=== PATIENT | male | born 1950 | race Caucasian/White ===

== ENCOUNTER → 2019-01-24 | Outpatient (CLI) | payer MEDICARE ==
--- NOTE | 2019-01-24 15:17 | Diagnostic Imaging Report ---
PROCEDURE: CT head without contrast. TECHNIQUE: Multiple contiguous axial images were obtained through the brain without the use of intravenous contrast. Auto Exposure Controls were utilized during the CT exam to meet ALARA standards for radiation dose reduction. INDICATION: Head injury. COMPARISON: None. FINDINGS: No intracranial hemorrhage, mass effect, hydrocephalus or extra-axial fluid collections. No CT evidence of a territorial infarction. The visualized osseous structures are intact. Partially visualized soft tissue thickening of the right upper eyelid. Visualized paranasal sinuses and mastoids are clear. IMPRESSION: 1. Soft tissue swelling of the right upper eyelid is partially visualized. No underlying fractures within the [id number]. 2. No acute intracranial CT findings. Dictated by: Dictated on workstation # [id number]
--- NOTE | 2019-01-24 15:28 | Diagnostic Imaging Report ---
INDICATION: Kicked by a horse. FINDINGS: There is an old healed deformity to the proximal third of the femoral shaft. The femoral neck and head are nonacute. The acetabulum and right pelvic ring are intact. An acute injury is not apparent. IMPRESSION: Old healed deformity to the femoral shaft. An acute fracture is not identified. Dictated by: Dictated on workstation # [id number]
== END ==
LOC: RAD FS 14:39
PROVIDERS: ATTEND Nurse Practitioner Family
DX: S06.0X0A Concussion without loss of consciousness, initial encounter (principal); M25.551 Pain in right hip; W55.12XA Struck by horse, initial encounter
CPT/HCPCS: 70450; 73502

== ENCOUNTER → 2019-05-04 | Outpatient (CLI) | payer MEDICARE ==
--- NOTE | 2019-05-04 12:29 | Diagnostic Imaging Report ---
EXAMINATION: Chest 2 view HISTORY: ACUTE BRONCHITIS, COUGH COMPARISON: None available. FINDINGS: The lung volumes are normal. Mild bronchial wall thickening is noted in the perihilar regions. No focal consolidation is seen. No large pleural effusion or pneumothorax is seen. The cardiomediastinal silhouette is normal in size and contour. No acute osseous abnormality is seen. IMPRESSION: 1. Mild bronchial wall thickening, which can be seen with bronchitis/bronchiolitis. No focal consolidations. Dictated by: Dictated on workstation # [id number]
== END ==
LOC: RAD FS 11:56
PROVIDERS: ATTEND Emergency Medicine
DX: J20.9 Acute bronchitis, unspecified (principal)
CPT/HCPCS: 71046

== ENCOUNTER → 2019-07-07 | Outpatient (CLI) | payer MEDICARE | LOC: LAB FS 10:43 | PROVIDERS: ATTEND Urology | DX: C61 Malignant neoplasm of prostate (principal) | CPT/HCPCS: 36415; 84153 ==

== ENCOUNTER → 2019-09-07 | Outpatient (CLI) | payer MEDICARE | LOC: LAB FS 13:01 | PROVIDERS: ATTEND Urology | DX: C61 Malignant neoplasm of prostate (principal) | CPT/HCPCS: 36415; 84153 ==

== ENCOUNTER → 2019-12-07 | Outpatient (CLI) | payer MEDICARE | LOC: LAB FS 11:31 | PROVIDERS: ATTEND Urology | DX: C61 Malignant neoplasm of prostate (principal) | CPT/HCPCS: 36415; 84153 ==

== ENCOUNTER 2020-01-02 14:07 | Outpatient (RCR) | payer MEDICARE | END 2020-04-01 | disposition home or self-care (01) | LOC: ONC 14:07 | PROVIDERS: ATTEND Radiology Radiation Oncology | DX: C61 Malignant neoplasm of prostate (principal) | CPT/HCPCS: 99204 ==

== ENCOUNTER → 2020-04-12 | Outpatient (CLI) | payer MEDICARE | LOC: LAB FS 09:09 | PROVIDERS: ATTEND Urology | DX: C61 Malignant neoplasm of prostate (principal) | CPT/HCPCS: 36415; 84153 ==

== ENCOUNTER → 2020-08-08 | Outpatient (CLI) | payer MEDICARE | LOC: LAB FS 11:23 | PROVIDERS: ATTEND Urology | DX: C61 Malignant neoplasm of prostate (principal) | CPT/HCPCS: 36415; 84153; 84154 ==

== ENCOUNTER → 2020-11-12 | Outpatient (CLI) | payer MEDICARE | LOC: LAB FS 09:50 | PROVIDERS: ATTEND Urology | DX: C61 Malignant neoplasm of prostate (principal) | CPT/HCPCS: 36415; 84153 ==

== ENCOUNTER 2020-11-21 11:18 | Emergency (ER) | payer MEDICARE ==
[~2020-11-21] VITALS: Ht 180.3 cm; Wt 93.5 kg
--- OUTSIDE RECORDS SUMMARY | 2020-11-21 11:23 | XMS REPORT | Clinical Summary ---
Author Author Shireen, Joaquin Tan Organization [facility] Address Unknown Phone Unavailable Allergies, Adverse Reactions, Alerts Allergy Name Reaction Description Start Date Severity Status Pr ovider No Known Allergies Chen Duenas Conditions or Problems Problem Name Problem Code Onset Date Status Entry Date Provider Comment Standard Description Annotate BMI 28-28.9 Refinement Britney Chance MD Body Mass Index 28.0-28.9, adult BMI 27-27.9 Refinement Britney Chance MD Body Mass Index 28.0-28.9, adult BMI 26-26.9 Active Britney Chance MD Body Mass Index 28.0-28.9, adult Overweight (BMI 25-29.9) Active Britney hightower MD Overweight Abnormal prostate on physical examination 602.9 Activ e Britney Chance MD Unspecified disorder of prostate Elevated prostate specific antigen [PSA] 790.93 Active Britney Chance MD Elevated prostate specific antigen [PSA] Adenocarcinoma, prostate, Carlos Alberto Grade 8 185 Resol armond Britney Chance MD Malignant neoplasm of prostate Adenocarcinoma, prostate, [place] Grade 9 185 Activ e Britney Chance MD Malignant neoplasm of prostate Adenocarcinoma, prostate, [place] Grade 8 ICD-185 Inactive Britney Chance MD Medication List Medication Instructions Start Date Stop Date Generic Name NDC Status Provider Patient Instruction VENLAFAXINE HCL 37.5 MG ORAL TABLET 1 tab by mouth daily VENLAFAXINE HCL 14319409303 Active Kacie Elder Active VITAMIN D2 50 MCG (1999 UT) ORAL TABLET 50,000 units daily ERGOCALCIFEROL 62969537754 No Longer Active Britney Chance MD Ac tive AMBIEN 10 MG ORAL TABLET 1 tab by mouth at bedtime as needed for sleep ZOLPIDEM TARTRATE 98962348431 No Longer Active Kacie Garay Active ASACOL HD 800 MG ORAL TABLET DELAYED RELEASE 3 tabs by mouth daily MESALAMINE 27849173280 No Longer Active Kacie Garay Active FLOMAX 0.4 MG ORAL CAPSULE 1 capsule by mouth every ev ening for prostate symptoms TAMSULOSIN HCL 10500559873 No Longer Active Kacie serrano Active FINASTERIDE 5 MG ORAL TABLET 1 tab by mouth daily FINASTERIDE 37180132460 No Longer Active Kacie Garay Active ASACOL HD 800 MG ORAL TABLET DELAYED RELEASE 3 tabs by mouth in morning and at night MESALAMINE 44790599724 Active Britney Chance MD Active FINASTERIDE 5 MG ORAL TABLET 1 tab by mouth daily FINASTERIDE 67757150418 Active Britney Chance MD Active FLOMAX 0.4 MG ORAL CAPSULE 1 capsule by mouth every ev ening for prostate symptoms TAMSULOSIN HCL 77771724309 Active Britney Chance MD Active BREO ELLIPTA 100-25 MCG/INH INHALATION AEROSOL POWDER BREATH ACTIVATED 1 puff by mouth q day for COPD FLUTICASONE FUROATE-VILANTEROL 55308 009836 Active Kacie Garay Active SYMBICORT 160-4.5 MCG/ACT INHALATION AEROSOL 2 puff BID BUDESONIDE- FORMOTEROL FUMARATE 64741170409 Active Kacie Garay Active TRAMADOL HCL 50 MG ORAL TABLET 1 po tid with ES Tylenol TRAMADOL HCL 25379731399 Active Kacie Elder Active AMBIEN 10 MG ORAL TABLET 1 tab by mouth at bedtime as needed for sl eep ZOLPIDEM TARTRATE 76982872562 Active Kacie Elder Active VITAMIN D2 50 MCG (1999 UT) ORAL TABLET 50,000 unit by mouth daily ERGOCALCIFEROL 45790077926 Active Kacie Elder Active ALBUTEROL SULFATE (2.5 MG/3ML) 0.083% INHALATION NEBUL IZATION SOLUTION 1 vial neb q 4hrs PRN Wheezing ALBUTEROL SULFATE 80465248443 Active [place] Active FINASTERIDE 5 MG ORAL TABLET 1 tab by mouth daily 2020 FINASTERIDE 5 MG ORAL TABLET 659799 FINASTERIDE Inactive FLOMAX 0.4 MG ORAL CAPSULE 1 capsule by mouth every ev ening for prostate symptoms FLOMAX 0.4 MG ORAL CAPSULE 363271 TAMSULOSI N HCL Inactive ASACOL HD 800 MG ORAL TABLET DELAYED RELEASE 3 tabs by mouth daily ASACOL HD 800 MG ORAL TABLET DELAYED RELEASE 378891 MESALAMINE Inactive AMBIEN 10 MG ORAL TABLET 1 tab by mouth at bedtime as needed for sleep AMBIEN 10 MG ORAL TABLET 275116 ZOLPIDEM TARTRATE Inact raymundo VITAMIN D2 50 MCG (1999) ORAL TABLET 50,000 units daily VITAMIN D2 50 MCG (1999) ORAL TABLET ERGOCALCIFEROL Inactive Advance Directives Directive Description Start Date PERMISSION TO SHARE PERMISSION TO SHARE Vital Signs Date Name Value Unit Range Description blood pressure, diastolic 76 mm[Hg] BP andrea blood pressure, systolic 118 mm[Hg] BP sys height E&M 71 [in_us] Bdy height pulse rate 72 /min Heart rate temperature E&M 98.4 [degF] Body temp erature weight E&M 190 [lb_av] Weight Measure d blood pressure, diastolic, repeated by physician 72 BP andrea blood pressure, diastolic 72 mm[Hg] BP andrea blood pressure, systolic, repeated by physician 113 BP sys blood pressure, systolic 113 mm[Hg] BP sys height E&M 71 [in_us] Bdy height pulse rate 70 /min Heart rate temperature E&M 98.4 [degF] Body temp erature weight E&M 192 [lb_av] Weight Measure d blood pressure, diastolic, repeated by physician 75 BP andrea blood pressure, diastolic 75 mm[Hg] BP andrea blood pressure, systolic, repeated by physician 116 BP sys blood pressure, systolic 116 mm[Hg] BP sys height E&M 71 [in_us] Bdy height pulse rate 67 /min Heart rate temperature E&M 98.4 [degF] Body temp erature weight E&M 193 [lb_av] Weight Measure d Encounters Code Encounter Date Provider Facility CPT-23139 Level 3 Est. Patient 15:35:22 CDT Britney hightower MD [facility] CPT-56798 Level 3 Est. Patient 11:04:55 DIRECTOR OF WOMEN'S SERVICES Britney hightower MD [facility]-18311 Level 4 Est. Patient 11:26:57 CDT Britney hightower MD [facility]-58938 Level 3 Est. Patient 11:05:02 CDT Britney hightower MD [facility]-42415 Level 3 Est. Patient 14:22:43 CDT Britney hightower MD [facility]-85815 Level 4 Est. Patient 14:18:08 CDT Britney hightower MD [facility]-94664 Level 4 Est. Patient 14:38:34 CDT Britney hightower MD [facility] CPT-31786 Level 3 Est. Patient 15:39:13 CDT Britney hightower MD [facility] CPT-63537 Level 4 New Patient 20:47:31 CDT Britney ayala MD [facility] Procedures Code Procedure Name Date Entry Date Standard Desc ription CPT-10882 Admin hormonal anti neoplastic 15:35:22 CDT CPT-[id number] Lupron 22.5 mg (3 month) 15:35:22 CDT 08/16 CPT-87987 Admin hormonal anti neoplastic 15:10:04 DIRECTOR OF WOMEN'S SERVICES CPT-X9326X4 Lupron 22.5 mg (3 month) 15:10:04 DIRECTOR OF WOMEN'S SERVICES 04/29 CPT-82839 Bladder Scan 11:04:55 DIRECTOR OF WOMEN'S SERVICES CPT-19251 Admin hormonal anti neoplastic 11:28:28 CDT CPT-J9217 Lupron 30mg 11:28:28 CDT CPT-92682 Admin hormonal anti neoplastic 11:05:02 CDT CPT-K2637E5 Lupron 22.5 mg (3 month) 11:05:02 CDT 09/14 CPT-58194 Dil ureth strict sound/dilator M int 14:22:44 CDT CPT-92044 Cystoscopy 14:22:44 CDT CPT-95904 Postop F/U Visit 12:20:46 CDT CPT-85355 Admin hormonal anti neoplastic 14:40:05 CDT CPT-J9155 Firmagon 240 mg 14:40:05 CDT CPT-84786 Needle Biopsy - Prostate 15:39:13 CDT 06/11 CPT-00722 Ultrasound - Prostatic for Bx 15:39:13 CDT
--- NOTE | 2020-11-21 11:33 | ED Back Pain ---
General Chief Complaint: Back Problems Stated Complaint: RT FLANK PAIN History of Present Illness Date Seen by Provider: Nov 21, 2020 Time Seen by Provider: 11:32 Initial Comments 70-year-old male presents with onset of right flank and back pain at 3 AM this morning. Pain has migrated somewhat from his back and flank to his right lower quadrant. No associated blood in his urine or pain with urination, however does have a history of kidney stones. Denies fever chills or abdominal pain. Denies constipation or diarrhea. Allergies and Home Medications Allergies Coded Allergies: No Known Drug Allergies (Unverified , 11/21/20) Patient Home Medication List Home Medication List Reviewed: Yes Hydrocodone/Acetaminophen (Hydrocodone-Acetamin 5-325 mg) 1 Each Tablet, 1 EACH PO Q4H Prescribed by: ABBY SUE on 11/21/20 1317 Ibuprofen (Ibuprofen) 800 Mg Tablet, 800 MG PO Q8H PRN for PAIN Prescribed by: ABBY SUE on 11/21/20 1316 Tamsulosin HCl (Flomax) 0.4 Mg Cap, 0.4 MG PO DAILY Prescribed by: ABBY SUE on 11/21/20 1316 Review of Systems Constitutional: No fever, No malaise, No weakness Respiratory: no symptoms reported Cardiovascular: No chest pain, No edema Gastrointestinal: No abdominal pain; nausea; No vomiting Genitourinary: No dysuria, No frequency, No hematuria Musculoskeletal: back pain Skin: No change in color, No rash Past Rymtwci-Awppim-Vyjmxi Hx Patient Social History Tobacco Use?: No Physical Exam Vital Signs Vital Signs - First Documented 11/21/20 11/21/20 11:20 13:27 Temp 36.1 Pulse 61 Resp 14 B/P (MAP) 151/80 (103) Pulse Ox 97 O2 Delivery Room Air Capillary Refill : Height, Weight, BMI Height: '" Weight: lbs. oz. kg; BMI Method: General Appearance: No Apparent Distress, WD/WN Cardiovascular: Regular Rate, Rhythm, No Edema Respiratory: Chest Non Tender, Lungs Clear Gastrointestinal: Normal Bowel Sounds, No Organomegaly, Non Tender, Soft Back: No CVA Tenderness, No Vertebral Tenderness Neurologic/Psychiatric: Alert, Oriented x3, No Motor/Sensory Deficits, Normal Mood/Affect Skin: Normal Color, Warm/Dry Progress/Results/Core Measures Results/Orders Lab Results Laboratory Tests Test 11/21/20 11:20 Range/Units Urine Color YELLOW Urine Clarity CLOUDY Urine pH 5.0 5-9 Urine Specific [place] >=1.030 1.016-1.022 Urine Protein NEGATIVE NEGATIVE Urine Glucose (UA) NEGATIVE NEGATIVE Urine Ketones NEGATIVE NEGATIVE Urine Nitrite NEGATIVE NEGATIVE Urine Bilirubin NEGATIVE NEGATIVE Urine Urobilinogen 0.2 < = 1.0 MG/DL Urine Leukocyte Esterase NEGATIVE NEGATIVE Urine RBC (Auto) 3+ H NEGATIVE Urine RBC >100 H /HPF Urine WBC RARE /HPF Urine Squamous Epithelial Cells NONE /HPF Urine Crystals NONE /LPF Urine Bacteria NEGATIVE /HPF Urine Casts NONE /LPF Urine Mucus NEGATIVE /LPF Urine Culture Indicated NO My Orders Orders - ABBY SUE DO Urinalysis (11/21/20 11:28) Ns Iv 1000 Ml (Sodium Chloride 0.9%) (11/21/20 11:45) Ketorolac Injection (Toradol Injection) (11/21/20 11:45) Ondansetron Injection (Zofran Injectio (11/21/20 11:45) Ct Abdomen/Pelvis Wo (11/21/20 12:29) Medications Given in ED Current Medications Medications Dose Ordered Sig/Waldo Route Start Time Stop Time Status Last Admin Dose Admin Ketorolac Tromethamine 30 mg ONCE ONCE IVP 11/21/20 11:45 11/21/20 11:46 DC 11/21/20 11:41 30 MG Ondansetron HCl 4 mg ONCE ONCE IVP 11/21/20 11:45 11/21/20 11:46 DC 11/21/20 11:42 4 MG Vital Signs/I&O 11/21/20 11/21/20 11:20 13:27 Temp 36.1 36.1 Pulse 61 57 Resp 14 B/P (MAP) 151/80 (103) 136/75 Pulse Ox 97 97 O2 Delivery Room Air Room Air Progress Progress Note : Time: 12:30 Progress Note some relief of pain....from 8 to 6/10 intensity. NO change of location of pain. Departure Impression Primary Impression: Ureterolithiasis Disposition: 01 HOME, SELF-CARE Condition: Improved Departure-Patient Inst. Decision time for Depature: 13:11 Referrals: DAVID SPARROW DO (PCP/Family) Primary Care Physician LISA GALLEGO MD Patient Instructions: Kidney Stone, Adult ED, How to Strain Your Urine, Kidney Stone Diet Add. Discharge Instructions: Call your Urologist today to schedule a follow up appointment if your pain is not resolving All discharge instructions reviewed with patient and/or family. Voiced understanding. Scripts Ibuprofen (Ibuprofen) 800 Mg Tablet 800 MG PO Q8H PRN for PAIN, #30 TAB 0 Refills Prov: ABBY SUE DO 11/21/20 Hydrocodone/Acetaminophen (Hydrocodone-Acetamin 5-325 mg) 1 Each Tablet 1 EACH PO Q4H for Abdominal Pain, #12 TAB Prov: ABBY SUE DO 11/21/20 Tamsulosin HCl (Flomax) 0.4 Mg Cap 0.4 MG PO DAILY, #5 CAP Prov: ABBY SUE DO 11/21/20 ABBY SUE DO Nov 21, 2020 11:32
[2020-11-21 11:44] LABS: BILIRUBIN,URINE NEGATIVE (NEGATIVE); CLARITY,URINE CLOUDY; COLOR,URINE YELLOW; GLUCOSE, URINE (UA) NEGATIVE (NEGATIVE); KETONES,URINE NEGATIVE (NEGATIVE); LEUKOCYTE ESTERASE ,URINE NEGATIVE (NEGATIVE); NITRITE,URINE NEGATIVE (NEGATIVE); PROTEIN,URINE NEGATIVE (NEGATIVE)
[2020-11-21 11:45] LABS: BACTERIA,URINE NEGATIVE /HPF; RBC,URINE >100 /HPF; WBC,URINE RARE /HPF
[2020-11-21] MEDS ORDERED: KETOROLAC 30 MG/ML VIAL IVP ONE (11:45)
[2020-11-21] MEDS ORDERED: NS IV 1000 ML 1,000 ML IV SCH (11:45)
[2020-11-21] MEDS ORDERED: ONDANSETRON 4 MG/2 ML (SDV) Z0FRAN IVP ONE (11:45)
--- NOTE | 2020-11-21 13:02 | Diagnostic Imaging Report ---
PROCEDURE: CT abdomen and pelvis without contrast. TECHNIQUE: Multiple contiguous axial images were obtained through the abdomen and pelvis without the use of intravenous contrast. Auto Exposure Controls were utilized during the CT exam to meet ALARA standards for radiation dose reduction. INDICATION: Right flank pain. Patient does have a history of kidney stones. No prior studies are available for comparison. FINDINGS: There is a 4 mm nodule in the right middle lobe laterally. Otherwise the lung bases are clear. Liver is unremarkable. Gallbladder is surgically absent. There is no biliary ductal dilatation. Pancreas and spleen are unremarkable. No adrenal mass is detected. There are bilateral renal calculi, largest is on the left in the lower pole measuring 9 mm. There is also a 5 mm calculus at the junction of the proximal and mid right ureter producing moderate hydroureteronephrosis. No other ureteral calculi are detected. Aorta is nonaneurysmal. Bowel loops are normal caliber. There is generalized diverticulosis throughout the colon most significant in the sigmoid colon but no evidence of acute diverticulitis. There is no free fluid or fluid collection. Bladder is unremarkable. There are fat-containing inguinal hernias bilaterally. IMPRESSION: 1. Bilateral nonobstructing nephrolithiasis. In addition, there is a 5 mm calculus at the junction of the proximal and mid right ureter producing moderate hydroureteronephrosis. 2. Uncomplicated diverticulosis. Dictated by: Dictated on workstation # [id number]
[2020-11-21] MEDS ORDERED: ACHD5005 PO (13:16)
[2020-11-21] MEDS ORDERED: IBUP-1780 PO (13:16)
[2020-11-21] MEDS ORDERED: TMSL.4C PO (13:16)
[2020-11-21 13:27] VITALS: BP 136/75
== END 2020-11-21 13:27 | disposition home or self-care (01) ==
LOC: EDUNIT# 11:18 → ER FS 11:20
DX: N13.2 Hydronephrosis with renal and ureteral calculous obstruction (principal)
CPT/HCPCS: 74176; 81000

== ENCOUNTER → 2021-02-07 | Outpatient (CLI) | payer MEDICARE ==
[~2021-02-07] MED LIST: ACHD5005 PO; IBUP-1780 PO; TMSL.4C PO
== END ==
LOC: LAB FS 09:06
PROVIDERS: ATTEND Urology
DX: C61 Malignant neoplasm of prostate (principal)
CPT/HCPCS: 36415; 84153

== ENCOUNTER → 2021-02-18 | Outpatient (CLI) | payer MEDICARE ==
--- NOTE | 2021-02-18 13:18 | Diagnostic Imaging Report ---
INDICATION: Right-sided abdominal pain. TIME OF EXAM: 10:19 AM Single view the abdomen shows surgical clips in gallbladder fossa. The bowel gas pattern is nonobstructed. No definite pathologic calcifications are seen. IMPRESSION: No acute abnormalities detected. Dictated by: Dictated on workstation # [id number]
== END ==
LOC: RAD FS 10:04
PROVIDERS: ATTEND Nurse Practitioner Family
DX: N20.9 Urinary calculus, unspecified (principal)
CPT/HCPCS: 74018

== ENCOUNTER → 2021-05-07 | Outpatient (CLI) | payer MEDICARE | LOC: LAB FS 15:19 | PROVIDERS: ATTEND Urology | DX: C61 Malignant neoplasm of prostate (principal) | CPT/HCPCS: 36415; 84153; 84270; 84403 ==

== ENCOUNTER → 2021-08-07 | Outpatient (CLI) | payer MEDICARE | LOC: LAB FS 13:11 | PROVIDERS: ATTEND Urology | DX: C61 Malignant neoplasm of prostate (principal) | CPT/HCPCS: 36415; 84153; 84403 ==

== ENCOUNTER → 2021-11-07 | Outpatient (CLI) | payer MEDICARE | LOC: LAB FS 09:06 | PROVIDERS: ATTEND Urology | DX: C61 Malignant neoplasm of prostate (principal) | CPT/HCPCS: 36415; 84153 ==

== ENCOUNTER 2021-11-21 17:26 | Emergency (ER) | payer MEDICARE ==
[~2021-11-21] VITALS: Ht 180.3 cm; Wt 91.0 kg
[2021-11-21 17:35] VITALS: BP 120/76
--- NOTE | 2021-11-21 17:36 | ED GI ---
General Chief Complaint: Abdominal/GI Problems Stated Complaint: BLOOD IN STOOL History of Present Illness Date Seen by Provider: Nov 21, 2021 Time Seen by Provider: 17:31 Initial Comments 71-year-old male presents has had 9 stools that have had blood in them. Patient reports is bright red blood. He has had a little bit of stool with it. Patient reports he had a normal colonoscopy with exception of some hemorrhoids in August. He does have a history of ulcerative colitis. He is not having a belly pain. He has some nausea but no vomiting. Feels like he is little short of breath now with some exertion. Patient denies any fever, chills or urinary symptoms Allergies and Home Medications Allergies Coded Allergies: No Known Drug Allergies (Unverified , 11/21/20) Patient Home Medication List Home Medication List Reviewed: Yes Hydrocodone/Acetaminophen (Hydrocodone-Acetamin 5-325 mg) 1 Each Tablet, 1 EACH PO Q4H Prescribed by: ABBY SUE on 11/21/20 1317 Ibuprofen (Ibuprofen) 800 Mg Tablet, 800 MG PO Q8H PRN for PAIN Prescribed by: ABBY SUE on 11/21/20 131 Ondansetron (Ondansetron Odt) 4 Mg Tab.rapdis, 4 MG PO Q6H PRN for NAUSEA/VOMITING Prescribed by: ADRIANA GUILLERMO on 11/21/211929 Prednisone (Prednisone) 20 Mg Tab, 40 MG PO DAILY Prescribed by: ADRIANA GUILLERMO on 11/21/211929 Tamsulosin HCl (Flomax) 0.4 Mg Cap, 0.4 MG PO DAILY Prescribed by: ABBY SUE on 11/21/20 1316 Review of Systems Review of Systems Constitutional: No chills, No fever Respiratory: Denies Cough, Denies Orthopnea Cardiovascular: Denies Chest Pain, Denies Palpitations Gastrointestinal: Denies Abdominal Pain; Nausea, Rectal Bleeding; Denies Vom iting Genitourinary: No Symptoms Reported Musculoskeletal: no symptoms reported Skin: no symptoms reported Psychiatric/Neurological: No Symptoms Reported Endocrine: No Symptoms Reported Past Dayykrr-Spqmhm-Hfkobk Hx Immunizations Up To Date First/Initial COVID19 Vaccinat: 2020 Second COVID19 Vaccination Nicholas: May 2020 Physical Exam Vital Signs Vital Signs - First Documented 11/21/21 17:35 Temp 36.4 Pulse 102 Resp 17 B/P (MAP) 120/76 (91) Pulse Ox 93 O2 Delivery Room Air Capillary Refill : Height/Weight/BMI Height: '" Weight: lbs. oz. kg; 28.00 BMI Method: General Appearance: no apparent distress HEENT: PERRL/EOMI Neck: full range of motion, supple Respiratory: lungs clear, normal breath sounds Cardiovascular: normal peripheral pulses, regular rate, rhythm Gastrointestinal: non tender, soft Extremities: normal range of motion, non-tender Neurologic/Psychiatric: no motor/sensory deficits, alert, normal mood/affect, oriented x 3 Skin: normal color, warm/dry Progress/Results/Core Measures Results/Orders Lab Results Laboratory Tests Test 11/21/21 17:36 11/21/21 18:04 Range/Units White Blood Count 8.2 4.3-11.0 10^3/uL Red Blood Count 4.03 L 4.30-5.52 10^6/uL Hemoglobin 12.6 L 13.3-17.7 g/dL Hematocrit 36 L 40-54 % Mean Corpuscular Volume 89 80-99 fL Mean Corpuscular Hemoglobin 31 25-34 pg Mean Corpuscular Hemoglobin Concent 35 32-36 g/dL Red Cell Distribution Width 13.3 10.0-14.5 % Platelet Count 281 130-400 10^3/uL Mean Platelet Volume 9.0 9.0-12.2 fL Immature Granulocyte % (Auto) 3 % Neutrophils (%) (Auto) 54 42-75 % Lymphocytes (%) (Auto) 26 12-44 % Monocytes (%) (Auto) 11 0-12 % Eosinophils (%) (Auto) 5 0-10 % Basophils (%) (Auto) 2 0-10 % Neutrophils # (Auto) 4.4 1.8-7.8 10^3/uL Lymphocytes # (Auto) 2.1 1.0-4.0 10^3/uL Monocytes # (Auto) 0.9 0.0-1.0 10^3/uL Eosinophils # (Auto) 0.4 H 0.0-0.3 10^3/uL Basophils # (Auto) 0.1 0.0-0.1 10^3/uL Immature Granulocyte # (Auto) 0.2 H 0.0-0.1 10^3/uL Erythrocyte Sedimentation Rate 45 H 0-30 MM/HR Sodium Level 138 135-145 MMOL/L Potassium Level 4.1 3.6-5.0 MMOL/L Chloride Level 106 98-107 MMOL/L Carbon Dioxide Level 18 L 21-32 MMOL/L Anion Gap 14 5-14 MMOL/L Blood Urea Nitrogen 26 H 7-18 MG/DL Creatinine 0.87 0.60-1.30 MG/DL Estimat Glomerular Filtration Rate 92 BUN/Creatinine Ratio 30 Glucose Level 185 H 70-105 MG/DL Calcium Level 8.8 8.5-10.1 MG/DL Corrected Calcium 8.7 8.5-10.1 MG/DL Magnesium Level 1.9 1.6-2.4 MG/DL Total Bilirubin 0.4 0.1-1.0 MG/DL Aspartate Amino Transf (AST/SGOT) 31 5-34 U/L Alanine Aminotransferase (ALT/SGPT) 45 0-55 U/L Alkaline Phosphatase 84 40-136 U/L C-Reactive Protein < 0.30 <0.50 MG/DL Total Protein 6.9 6.4-8.2 GM/DL Albumin 4.1 3.2-4.5 GM/DL Urine Color YELLOW Urine Clarity CLEAR Urine pH 5.0 5-9 Urine Specific [place] >=1.030 1.016-1.022 Urine Protein 1+ H NEGATIVE Urine Glucose (UA) TRACE H NEGATIVE Urine Ketones NEGATIVE NEGATIVE Urine Nitrite NEGATIVE NEGATIVE Urine Bilirubin 1+ H NEGATIVE Urine Urobilinogen 0.2 < = 1.0 MG/DL Urine Leukocyte Esterase NEGATIVE NEGATIVE Urine RBC (Auto) NEGATIVE NEGATIVE Urine RBC NONE /HPF Urine WBC 5-10 H /HPF Urine Squamous Epithelial Cells NONE /HPF Urine Crystals NONE /LPF Urine Bacteria MODERATE H /HPF Urine Casts PRESENT /LPF Urine Granular Casts 10-25 H /LPF Urine Mucus NEGATIVE /LPF Urine Culture Indicated YES My Orders Orders - GUILLERMO,ADRIANA L DO Cbc With Automated Diff (11/21/21 17:37) Comprehensive Metabolic Panel (11/21/21 17:37) Erythrocyte Sedimentation Rate (11/21/21 17:37) Magnesium (11/21/21 17:37) Ua Culture If Indicated (11/21/21 17:37) Crp Fs (11/21/21 17:37) Lactated Ringers (Lr 1000 Ml Iv Solution (11/21/21 17:37) Ed Iv/Invasive Line Start (11/21/21 17:37) Urine Culture (11/21/21 18:04) Ct Abdomen/Pelvis W (11/21/21 18:20) Iohexol Injection (Omnipaque 350 Mg/Ml 1 (11/21/21 18:30) Received Contrast (Hold Metformin- Contr (11/21/21 18:30) Ns (Ivpb) (Sodium Chloride 0.9% Ivpb Bag (11/21/21 18:30) Methylprednisolone Sod Succ (Solu-Medrol (11/21/21 19:30) Medications Given in ED Current Medications Medications Dose Ordered Sig/Waldo Route Start Time Stop Time Status Last Admin Dose Admin Iohexol 100 ml ONCE ONCE IV 11/21/21 18:30 11/21/21 18:31 DC 11/21/21 18:49 100 ML Methylprednisolone Sodium Succinate 80 mg ONCE ONCE IV 11/21/21 19:30 11/21/21 19:31 DC 11/21/21 19:37 80 MG Sodium Chloride 100 ml ONCE ONCE IV 11/21/21 18:30 11/21/21 18:31 DC 11/21/21 18:49 100 ML Vital Signs/I&O 11/21/21 17:35 Temp 36.4 Pulse 102 Resp 17 B/P (MAP) 120/76 (91) Pulse Ox 93 O2 Delivery Room Air Progress Progress Note : Progress Note Patient with elevated ESR along with CT scan shows colitis. Patient will be given steroid shot here in the ER then prescribed steroid x3 days. Patient should continue his other medication. Recommend he follow-up with his GI specialist next week. Patient stable and discharged Diagnostic Imaging Diagonstic Imaging: CT Plain Films/CT/US/NM/MRI: abdomen Comments Date of Exam:11/21/21 CT ABDOMEN/PELVIS W PROCEDURE: CT abdomen and pelvis with contrast. TECHNIQUE: Multiple contiguous axial images were obtained through the abdomen and pelvis after administration of intravenous contrast. Auto Exposure Controls were utilized during the CT exam to meet ALARA standards for radiation dose reduction. All CT scans use one or more of the following dose optimizing techniques: automated exposure control, MA and/or KvP adjustment based on patient size and exam type or iterative reconstruction. INDICATION: Rectal bleeding, diarrhea. COMPARISON: 11/21/2020 FINDINGS: Mild bronchiectatic changes within the lung bases. No significant basilar pleural effusion. Sub-0.6 cm left lower lobe pulmonary nodules are unchanged from the prior examination. Cholecystectomy. The liver is unremarkable. The spleen is unremarkable. The adrenal glands are unremarkable. The pancreas is unremarkable. Bilateral nonobstructing renal calculi are again identified within the kidneys bilaterally. Additional small hypodensities within bilateral kidneys are present which are too small to completely characterize. Mild vascular calcifications without aneurysmal dilatation of the abdominal aorta. The appendix is unremarkable. The urinary bladder is decompressed, therefore not well evaluated. The prostate gland is not definitely visualized. Mural thickening of the rectum and distal sigmoid colon is noted. Moderate colonic diverticulosis. No bowel obstruction or pneumatosis. No significant adenopathy, free air, or free fluid within the abdomen or pelvis. No acute osseous abnormality. IMPRESSION: Mural thickening of the rectum and distal sigmoid colon is suggestive of underlying colitis. No evidence of bowel obstruction. Moderate colonic diverticulosis. Bilateral nonobstructing renal calculi. Stable sub-0.6 cm left lower lobe pulmonary nodules. If the patient is at high risk for lung cancer, a follow-up CT of the chest would be recommended in one year to ensure stability. Reviewed: Reviewed/Discussed Departure Impression Primary Impression: Colitis Disposition: 01 HOME, SELF-CARE Condition: Improved Departure-Patient Inst. Referrals: DAVID SPARROW DO (PCP/Family) Primary Care Physician Patient Instructions: Colitis (DC), Diet for Ulcerative Colitis, Ulcerative Colitis (DC) Add. Discharge Instructions: Please call your GI specialist on Wednesday to arrange for a follow-up and further outpatient evaluation as needed All discharge instructions reviewed with patient and/or family. Voiced understanding. Scripts Ondansetron (Ondansetron Odt) 4 Mg Tab.rapdis 4 MG PO Q6H PRN for NAUSEA/VOMITING, #20 TAB 0 Refills Prov: GUILLERMO,ADRIANA L DO 11/21/21 Prednisone (Prednisone) 20 Mg Tab 40 MG PO DAILY, #6 TAB 0 Refills Prov: GUILLERMO,ADRIANA L DO 11/21/21 GUILLERMO,ADRIANA L DO Nov 21, 2021 17:36
[2021-11-21] MEDS ORDERED: LACTATED RINGERS 1,000 ML IV STA (17:37)
[2021-11-21 17:44] LABS: BASOPHILS # (AUTO) 0.1 10^3/uL (0.0-0.1); BASOPHILS % (AUTO) 2 % (0-10); EOSINOPHILS # (AUTO) 0.4 10^3/uL (0.0-0.3); EOSINOPHILS % (AUTO) 5 % (0-10); HEMATOCRIT 36 % (40-54); HEMOGLOBIN 12.6 g/dL (13.3-17.7); LYMPHOCYTES # (AUTO) 2.1 10^3/uL (1.0-4.0); LYMPHOCYTES % (AUTO) 26 % (12-44); MEAN CORPUSCULAR HEMOGLOBIN 31 pg (25-34); MEAN CORPUSCULAR HGB CONC 35 g/dL (32-36); MEAN CORPUSCULAR VOLUME 89 fL (80-99); MONOCYTES # (AUTO) 0.9 10^3/uL (0.0-1.0); MONOCYTES % (AUTO) 11 % (0-12); NEUTROPHILS # (AUTO) 4.4 10^3/uL (1.8-7.8); NEUTROPHILS % (AUTO) 54 % (42-75); PLATELET COUNT 281 10^3/uL (130-400); WHITE BLOOD COUNT 8.2 10^3/uL (4.3-11.0)
[2021-11-21 18:08] LABS: CLARITY,URINE CLEAR; COLOR,URINE YELLOW; GLUCOSE, URINE (UA) TRACE (NEGATIVE); KETONES,URINE NEGATIVE (NEGATIVE); LEUKOCYTE ESTERASE ,URINE NEGATIVE (NEGATIVE); NITRITE,URINE NEGATIVE (NEGATIVE); PROTEIN,URINE 1+ (NEGATIVE)
[2021-11-21 18:10] LABS: ALANINE AMINOTRANSFERASE 45 U/L (0-55); ALBUMIN 4.1 GM/DL (3.2-4.5); ALKALINE PHOSPHATASE 84 U/L (40-136); BILIRUBIN,TOTAL 0.4 MG/DL (0.1-1.0); BUN/CREATININE RATIO 30; CALCIUM 8.8 MG/DL (8.5-10.1); CARBON DIOXIDE 18 MMOL/L (21-32); CHLORIDE 106 MMOL/L (98-107); CREATININE SERUM 0.87 MG/DL (0.60-1.30); ERYTHROCYTE SEDIMENTATION RATE 45 MM/HR (0-30); GFR ESTIMATED 92; GLUCOSE 185 MG/DL (70-105); MAGNESIUM 1.9 MG/DL (1.6-2.4); POTASSIUM 4.1 MMOL/L (3.6-5.0); SODIUM 138 MMOL/L (135-145); TOTAL PROTEIN 6.9 GM/DL (6.4-8.2)
[2021-11-21 18:11] LABS: BILIRUBIN,URINE 1+ (NEGATIVE)
[2021-11-21 18:14] LABS: BACTERIA,URINE MODERATE /HPF
[2021-11-21] MEDS ORDERED: IOHEXOL 350 MG/ML 100 ML (OMNIPAQUE 350) VIAL IV ONE (18:30)
[2021-11-21] MEDS ORDERED: HOLD METFORMIN - RECEIVED CONTRAST 20 ML VIAL IV SCH (18:30)
[2021-11-21] MEDS ORDERED: NS 100 ML (IVPB) BAG IV ONE (18:30)
--- NOTE | 2021-11-21 19:20 | Diagnostic Imaging Report ---
PROCEDURE: CT abdomen and pelvis with contrast. TECHNIQUE: Multiple contiguous axial images were obtained through the abdomen and pelvis after administration of intravenous contrast. Auto Exposure Controls were utilized during the CT exam to meet ALARA standards for radiation dose reduction. All CT scans use one or more of the following dose optimizing techniques: automated exposure control, MA and/or KvP adjustment based on patient size and exam type or iterative reconstruction. INDICATION: Rectal bleeding, diarrhea. COMPARISON: 11/21/2020 FINDINGS: Mild bronchiectatic changes within the lung bases. No significant basilar pleural effusion. Sub-0.6 cm left lower lobe pulmonary nodules are unchanged from the prior examination. Cholecystectomy. The liver is unremarkable. The spleen is unremarkable. The adrenal glands are unremarkable. The pancreas is unremarkable. Bilateral nonobstructing renal calculi are again identified within the kidneys bilaterally. Additional small hypodensities within bilateral kidneys are present which are too small to completely characterize. Mild vascular calcifications without aneurysmal dilatation of the abdominal aorta. The appendix is unremarkable. The urinary bladder is decompressed, therefore not well evaluated. The prostate gland is not definitely visualized. Mural thickening of the rectum and distal sigmoid colon is noted. Moderate colonic diverticulosis. No bowel obstruction or pneumatosis. No significant adenopathy, free air, or free fluid within the abdomen or pelvis. No acute osseous abnormality. IMPRESSION: Mural thickening of the rectum and distal sigmoid colon is suggestive of underlying colitis. No evidence of bowel obstruction. Moderate colonic diverticulosis. Bilateral nonobstructing renal calculi. Stable sub-0.6 cm left lower lobe pulmonary nodules. If the patient is at high risk for lung cancer, a follow-up CT of the chest would be recommended in one year to ensure stability. Dictated by: Dictated on workstation # [id number]
[2021-11-21] MEDS ORDERED: PRD20T PO (19:30)
[2021-11-21] MEDS ORDERED: methylPREDNISolone 40 MG/ML (Solu-MEDROL) VIAL IV ONE (19:30)
[2021-11-21] MEDS ORDERED: ONDA4TAB11 PO (19:30)
== END 2021-11-21 19:44 | disposition home or self-care (01) ==
LOC: EDUNIT# 17:26 → ER FS 17:27
DX: K52.9 Noninfective gastroenteritis and colitis, unspecified (principal)
CPT/HCPCS: 36415; 74177; 80053; 81000; 82274; 83735; 85025; 85652; 86141; 87088; Q9967

== ENCOUNTER → 2022-02-06 | Outpatient (CLI) | payer MEDICARE ==
[~2022-02-06] MED LIST changes: +ONDA4TAB11 PO; +PRD20T PO
== END ==
LOC: LAB FS 15:18
PROVIDERS: ATTEND Urology
DX: C61 Malignant neoplasm of prostate (principal)
CPT/HCPCS: 36415; 84153

== ENCOUNTER → 2022-05-08 | Outpatient (CLI) | payer MEDICARE | END | disposition still patient (30) | LOC: LAB FS 12:57 | PROVIDERS: ATTEND Urology | DX: C61 Malignant neoplasm of prostate (principal) | CPT/HCPCS: 36415; 84153; 84402; 84403 ==

== ENCOUNTER → 2022-09-11 | Outpatient (CLI) | payer MEDICARE | LOC: LAB FS 13:24 | PROVIDERS: ATTEND Urology | DX: C61 Malignant neoplasm of prostate (principal) | CPT/HCPCS: 36415; 84153 ==

== ENCOUNTER → 2022-12-14 | Outpatient (CLI) | payer MEDICARE | LOC: LAB FS 11:29 | PROVIDERS: ATTEND Nurse Practitioner Family | DX: C61 Malignant neoplasm of prostate (principal) | CPT/HCPCS: 36415; 84153 ==